=== PATIENT | male | born 1970 | race African-American/Black ===

== ENCOUNTER 2017-10-26 20:22 | Emergency (ER) | payer OTHER ==
[2017-10-26 22:11] LABS: BASOPHIL % 1.1 % (0-2); PLATELET COUNT 165 x10^3mcL (130-400); RED CELL DISTRIBUTION WIDTH 13.8 % (11.5-14.5)
[2017-10-26 22:13] VITALS: BP 127/82
[2017-10-26 22:14] LABS: C REACTIVE PROTEIN 11.8 mg/dL (<=0.9); CARBON DIOXIDE 28.1 mmol/L (21-32); CHLORIDE SERUM 101 mmol/L (98-107); CREATININE SERUM 1.2 mg/dL (0.7-1.3); GFR1 > 60 mL/min; GLUCOSE SERUM 105 mg/dL (74-106); POTASSIUM SERUM 3.5 mmol/L (3.5-5.1); SODIUM SERUM 136 mmol/L (136-145)
[2017-10-26 23:02] LABS: ERYTHROCYTE SED RATE 29 mm/hr (0-15)
== END 2017-10-26 22:13 | disposition home or self-care (01) ==
LOC: ED 20:22
PROVIDERS: Emergency Medicine
DX: J01.90 Acute sinusitis, unspecified (principal)
CPT/HCPCS: 36415

== ENCOUNTER 2018-01-06 22:01 | Emergency (ER) | payer MEDICAID ==
[~2018-01-06] VITALS: Ht 177.8 cm; Wt 82.5 kg
[2018-01-06 22:14] VITALS: BP 124/75; Ht 177.8 cm; Wt 82.5 kg
== END 2018-01-07 02:58 | disposition left against medical advice (07) ==
LOC: ED 22:01
DX: Z53.21 Procedure and treatment not carried out due to patient leaving prior to being seen by health care provider (principal)